=== PATIENT | male | born 1990 | race Caucasian/White ===

== ENCOUNTER 2017-09-18 03:07 | Emergency (ER) | payer OTHER ==
[2017-09-18] MEDS ORDERED: IBUPROFEN 200 MG TAB PO ONE (03:38)
[2017-09-18] MEDS ORDERED: TDAP ADULT 0.5 ML INJ (BOOSTRIX) IM ONE (03:38)
[2017-09-18] MEDS ORDERED: ONDANSETRON DISINTEGRATING 4 MG TAB PO ONE (03:38)
--- NOTE | 2017-09-18 04:18 | EDPHY ---
H & P Stated Complaint: hit head at work,, disorientated, "laceration" Time Seen by Provider: 09/18/17 03:14 HPI/ROS: HPI The patient presents with fall at work, injuring his head about 30 min ago. He was going into a walk-in refrigerator to get some blueberries when he struck his head. He does not recall any details of the fall and had loss of consciousness. When he awoke, he noticed that he had a headache and had vomiting. He comes into the emergency room now. He says he is feeling confused and not himself. He reports a throbbing diffuse severe headache. He does not have any changes in his vision. He does feel nauseated. He is not sure of his last tetanus vaccine. REVIEW OF SYSTEMS Constitutional: No fever, no chills. Eyes: No discharge. ENT: No sore throat. Cardiovascular: No chest pain, no palpitations. Respiratory: No cough, no shortness of breath. Gastrointestinal: No abdominal pain, no vomiting. Genitourinary: No hematuria. Musculoskeletal: No back pain. Skin: No rashes. Neurological: Positive for headache. PMHx: History of attention deficit hyperactivity disorder and bipolar disorder Soc Hx: Works at [employer] PHYSICAL General Appearance: Alert, no distress Head: Abrasions to his forehead with small frontal hematoma, left eyebrow with 2 longitudinal 1 cm superficial lacerations Eyes: Pupils equal and round no pallor or injection ENT, Mouth: Mucous membranes moist Respiratory: There are no retractions, lungs are clear to auscultation Cardiovascular: Regular rate and rhythm Gastrointestinal: Abdomen is soft and non-tender, no masses, bowel sounds normal Neurological: A&O, cranial nerves 2-12 intact, 5/5 strength in upper and lower which is symmetric Skin: Warm and dry, no rashes Musculoskeletal: Neck is supple non tender Extremities: symmetrical, full range of motion Psychiatric: Patient is oriented X 3, there is no agitation Source: Patient Exam Limitations: No limitations - Personal History Current Tetanus Diphtheria and Acellular Pertussis (TDAP): Yes - Medical/Surgical History Hx Asthma: No Hx Chronic Respiratory Disease: No Hx Diabetes: No Hx Cardiac Disease: No Hx Renal Disease: No Hx Cirrhosis: No Hx Alcoholism: No Hx HIV/AIDS: No Hx Splenectomy or Spleen Trauma: No Other PMH: bipolar, anxiety, ADHD - Social History Smoking Status: Light smoker Constitutional: Initial Vital Signs Temperature (C) 36.8 C 09/18/17 03:09 Heart Rate 95 09/18/17 03:09 Respiratory Rate 20 09/18/17 03:09 Blood Pressure 119/75 09/18/17 03:09 O2 Sat (%) 98 09/18/17 03:09 O2 Delivery Mode Room Air Allergies/Adverse Reactions: No Known Allergies Allergy (Unverified 09/18/17 03:09) Home Medications: Medication Instructions Recorded Adderall 20 mg (*) 09/18/17 Clonazepam 09/18/17 Seroquel 200 mg (*) 09/18/17 Medical Decision Making - Diagnostics Imaging Results: CT head without contrast demonstrates no acute injury or fracture, discussed with Dr. Ventura of Radiology. Imaging: Discussed imaging studies w/ physically impaired teacher Radiologist Differential Diagnosis: This is a 27-year-old man who presents with head injury, 30 min ago striking his head on an unknown object while walking into a freezer. He lost consciousness. He is now complaining of severe headache and vomiting. He has a normal neurologic exam though says he feels generally confused. He does have lacerations of his eyebrow, however these are quite superficial and do not require any repair. He was given Zofran and ibuprofen for his symptoms. His tetanus vaccine was updated. CT scan of his head was unremarkable for any acute intracranial hemorrhage. I suspect he is suffering from a concussion. I have also considered intracranial hemorrhage and seizure. He did not have any postictal period, tongue biting, urinary incontinence, thus I feel this is unlikely. I have discussed concussion with him and given him counseling on this. He will be discharged from the emergency department. - Data Points Medications Given: Discontinued Medications Diphtheria/Tetanus/Acell Pertussis (Boostrix) 0.5 ml IM .ONCE ONE Stop: 09/18/17 03:39 Last Admin: 09/18/17 04:09 Dose: 0.5 ml Ibuprofen (Motrin) 600 mg PO EDNOW ONE Stop: 09/18/17 03:39 Last Admin: 09/18/17 04:08 Dose: 600 mg Ondansetron HCl (Zofran Odt) 4 mg PO EDNOW ONE Stop: 09/18/17 03:39 Last Admin: 09/18/17 04:08 Dose: 4 mg Promethazine HCl (Phenergan) 25 mg PO EDNOW ONE Stop: 09/18/17 04:43 Last Admin: 09/18/17 04:44 Dose: 25 mg Departure - Departure Disposition: Home, Routine, Self-Care Clinical Impression: Fall Qualifiers: Encounter type: initial encounter Qualified Code(s): W19.XXXA - Unspecified fall, initial encounter Concussion Qualifiers: Encounter type: initial encounter Loss of consciousness presence/duration: with LOC of 30 min or less Qualified Code(s): S06.0X1A - Concussion with loss of consciousness of 30 minutes or less, initial encounter Forehead contusion Qualifiers: Encounter type: initial encounter Qualified Code(s): S00.83XA - Contusion of other part of head, initial encounter Eyebrow laceration Qualifiers: Encounter type: initial encounter Laterality: left Qualified Code(s): S01.112A - Laceration without foreign body of left eyelid and periocular area, initial encounter Condition: Good Instructions: Concussion (ED) Additional Instructions: Please make sure to take ibuprofen 400 mg every 6 hr as needed for headache. You should get rest and return to work only when you are feeling better and her headache has improved. I expect for you to have symptoms for 1-2 days, if these continue any longer, I would recommend you follow up with the doctor listed below. Please use antibiotic ointment on your eyebrow Referrals: Xiomara Kelley MD [Medical Doctor] - As per Instructions
[2017-09-18] MEDS ORDERED: PROMETHAZINE HCL 25 MG TAB ONE (04:42)
[2017-09-18] MEDS ORDERED: PROMETHAZINE HCL 25 MG TAB PO ONE (04:42)
[2017-09-18 04:50] VITALS: BP 120/84
== END 2017-09-18 04:57 | disposition home or self-care (01) ==
LOC: EDSEX → MERGE 03:07
DX: S06.0X1A Concussion with loss of consciousness of 30 minutes or less, initial encounter (principal); S01.112A Laceration without foreign body of left eyelid and periocular area, initial encounter; F17.200 Nicotine dependence, unspecified, uncomplicated; Z23 Encounter for immunization; W22.03XA Walked into furniture, initial encounter; Y99.0 Civilian activity done for income or pay; Y93.89 Activity, other specified

== ENCOUNTER 2017-09-26 00:42 | Emergency (ER) | payer SELFPAY ==
--- NOTE | 2017-09-26 00:47 | EDPHY ---
H & P Time Seen by Provider: 09/26/17 00:46 HPI/ROS: HPI CHIEF COMPLAINT: Syncope, tapering off Seroquel HISTORY OF PRESENT ILLNESS: This patient is a 27-year-old male, states he was incorrectly diagnosed with bipolar years ago it has been on s Seroquel for 4 years he presents to the emergency room after he had a syncopal episode. Patient states that for the past month he has been tapering off his Seroquel for the past month. He was at 600 mg and he has been cutting it down each week. He has been doing this on his own. He states that he went to [address] this evening and drove home when he got out of his car he felt lightheaded with tunnel vision and had a syncopal episode. Denies any chest pain or shortness of breath denies head strike. Denies headache or neck pain. Denies any pain anywhere. He reports to me was recently here in the emergency room few weeks ago for syncopal episode with head strike diagnosed with a concussion. He had a negative CT head at that time. He continues to taper off his Seroquel. He states his last dose was yesterday. Past Medical History: Bipolar disorder Past Surgical History: No recent surgery Social History: Smokes tobacco. Works nights at [employer]. ([place]) Family History: Noncontributory ROS REVIEW OF SYSTEMS: A comprehensive 10 point review of systems is otherwise negative aside from elements mentioned in the history of present illness. Exam Constitutional appears well nontoxic no acute distress, triage nursing summary reviewed, vital signs reviewed, awake/alert. Eyes normal conjunctivae and sclera, EOMI, PERRLA. HENT normal inspection, atraumatic, moist mucus membranes, no epistaxis, neck supple/ no meningismus, no raccoon eyes. Respiratory clear to auscultation bilaterally, normal breath sounds, no respiratory distress, no wheezing. Cardiovascular rate normal, regular rhythm, no murmur, no edema, distal pulses normal. Gastrointestinal soft, non-tender, no rebound, no guarding, normal bowel sounds, no distension, no pulsatile mass. Genitourinary no CVA tenderness. Musculoskeletal no midline vertebral tenderness, full range of motion, no calf swelling, no tenderness of extremities, no meningismus, good pulses, neurovascularly intact. Skin pink, warm, & dry, no rash, skin atraumatic. Neurologic awake, alert and oriented x 3, AAOx3, moves all 4 extremities equally, motor intact, sensory intact, CN II-XII intact, normal cerebellar, normal vision, normal speech. Psychiatric normal mood/affect. Heme/Lymph/Immune no lymphadenopathy. Differential Diagnosis: Includes but is not limited to in a particular order dehydration, electrolyte disturbance, cardiac arrhythmia, vasovagal syncope, orthostatic syncope, medication withdrawal, syncope after coming off Seroquel Medical Decision Making: Plan for this patient IV establishment blood draw, EKG for syncope, troponin, and re-evaluate. Gentle IV hydration. Re-evaluation: 0102: I did recommend that I think he is tapering from his Seroquel too quickly. I recommend he tapers from his Seroquel this is what he wishes to do with a medical provider/psychiatrist. EKG interpretation by me on record in [employer] system. Impression time of EKG 1:06 a.m., sinus rhythm rate of [address] elevation no ST depression no significant T-wave abnormalities. No signs of cardiac arrhythmia. No signs of WPW or Brugada. Unremarkable nonischemic EKG. 0210: Patient re-evaluated this time resting comfortably in no acute distress. Feeling much better after IV fluids he is requesting discharge. EKG shows no signs of cardiac arrhythmia. Blood work is reassuring. Most likely had a syncopal episode due to Seroquel tapering. Recommend he follows up with his doctor. Return precautions discussed. Understands return emergency room if develops worsening symptoms questions or concerns. Source: Patient - Medical/Surgical History Hx Asthma: No Hx Chronic Respiratory Disease: No Hx Diabetes: No Hx Cardiac Disease: No Hx Renal Disease: No Hx Cirrhosis: No Hx Alcoholism: No Hx HIV/AIDS: No Hx Splenectomy or Spleen Trauma: No Other PMH: bipolar, anxiety, ADHD - Social History Smoking Status: Light smoker Constitutional: Initial Vital Signs Temperature (C) 36.8 C 09/26/17 00:45 Heart Rate 94 09/26/17 00:45 Respiratory Rate 18 09/26/17 00:45 Blood Pressure 141/94 H 09/26/17 00:45 O2 Sat (%) 96 09/26/17 00:45 O2 Delivery Mode Room Air Allergies/Adverse Reactions: No Known Allergies Allergy (Verified 09/26/17 00:43) Home Medications: Medication Instructions Recorded Adderall 20 mg (*) 09/18/17 Clonazepam 09/18/17 Seroquel 200 mg (*) 09/18/17 Medical Decision Making - Data Points Laboratory Results: Laboratory Results 09/26/17 01:08 09/26/17 01:08 09/26/17 09/26/17 01:08 01:08 WBC 8.28 10^3/uL 10^3/uL (3.80-9.50) RBC 4.60 10^6/uL 10^6/uL (4.40-6.38) Hgb 13.9 g/dL g/dL (13.7-17.5) Hct 40.7 % % (40.0-51.0) MCV 88.5 fL fL (81.5-99.8) MCH 30.2 pg pg (27.9-34.1) MCHC 34.2 g/dL g/dL (32.4-36.7) RDW 13.0 % % (11.5-15.2) Plt Count 211 10^3/uL 10^3/uL (150-400) MPV 10.1 fL fL (8.7-11.7) Neut % (Auto) 61.6 % % (39.3-74.2) Lymph % (Auto) 31.2 % % (15.0-45.0) [place] % (Auto) 5.8 % % (4.5-13.0) Eos % (Auto) 0.7 % % (0.6-7.6) Baso % (Auto) 0.5 % % (0.3-1.7) Nucleat RBC Rel Count 0.0 % % (0.0-0.2) Absolute Neuts (auto) 5.10 10^3/uL 10^3/uL (1.70-6.50) Absolute Lymphs (auto) 2.58 10^3/uL 10^3/uL (1.00-3.00) Absolute Monos (auto) 0.48 10^3/uL 10^3/uL (0.30-0.80) Absolute Eos (auto) 0.06 10^3/uL 10^3/uL (0.03-0.40) Absolute Basos (auto) 0.04 10^3/uL 10^3/uL (0.02-0.10) Absolute Nucleated RBC 0.00 10^3/uL 10^3/uL (0-0.01) Immature Gran % 0.2 % % (0.0-1.1) Immature Gran # 0.02 10^3/uL 10^3/uL (0.00-0.10) Sodium 142 mEq/L mEq/L (135-145) Potassium 3.7 mEq/L mEq/L (3.5-5.2) Chloride 105 mEq/L mEq/L (97-110) Carbon Dioxide 23 mEq/l mEq/l (22-31) Anion Gap 14 mEq/L mEq/L (8-16) BUN 17 mg/dL mg/dL (7-23) Creatinine 1.0 mg/dL mg/dL (0.7-1.3) Estimated GFR > 60 Glucose 132 mg/dL H mg/dL (70-100) Calcium 9.4 mg/dL mg/dL (8.5-10.4) Troponin I < 0.012 ng/mL ng/mL (0.000-0.034) Medications Given: Discontinued Medications Sodium Chloride (Ns) 1,000 mls @ 0 mls/hr IV EDNOW ONE; Wide Open PRN Reason: Protocol Stop: 09/26/17 00:57 Last Admin: 09/26/17 01:06 Dose: 1,000 mls Sodium Chloride (Ns) 1,000 mls @ 0 mls/hr IV EDNOW ONE; Wide Open PRN Reason: Protocol Stop: 09/26/17 00:57 Last Admin: 09/26/17 01:06 Dose: 1,000 mls Departure - Departure Disposition: Home, Routine, Self-Care Clinical Impression: Syncope Qualifiers: Syncope type: unspecified Qualified Code(s): R55 - Syncope and collapse Condition: Good Instructions: Syncope (ED) Additional Instructions: 1. Return emergency room if you have worsening symptoms questions or concerns. 2. I do recommend he stay well-hydrated. 3. Additionally I think you're tapering from her Seroquel too fast recommend you taper off her Seroquel if this is what you with to do with a medical provider like a psychiatrist. Referrals: YUSEF ODOM [Primary Care Provider] - As per Instructions Agustin Mayes MD [Medical Doctor] - As per Instructions
[2017-09-26] MEDS ORDERED: NS 1,000 ML IV ONE ×2 (00:56)
--- NOTE | 2017-09-26 01:08 | CPEKG ---
Heart Rate: 74 RR Interval: 811 P-R Interval: 137 QRSD Interval: 88 QT Interval: 392 QTC Interval: 435 P [place]: 68 QRS [place]: 79 T Wave [place]: 61 EKG Severity - NORMAL ECG - EKG Impression: SINUS RHYTHM Electronically Signed By: Arvind Jade 30-Sep-2017 12:06:31
[2017-09-26 01:17] LABS: PLATELET COUNT 211 10^3/uL (150-400)
[2017-09-26 02:23] VITALS: BP 128/77
== END 2017-09-26 02:22 | disposition home or self-care (01) ==
LOC: MERGE 00:42
DX: R55 Syncope and collapse (principal); E86.9 Volume depletion, unspecified; F17.200 Nicotine dependence, unspecified, uncomplicated